=== PATIENT | male | born 1970 | race Caucasian/White ===

== ENCOUNTER 2016-07-04 21:23 | Emergency (ER) | payer OTHER, MEDICARE ==
[~2016-07-04 21:23] MED LIST: HYDR10TA16 PO
[2016-07-04 21:27] VITALS: BP 139/87; PULSE 66; RESP 16; TEMP 97.9; O2SAT 96
[2016-07-04] MEDS ORDERED: TETANUS/DIPHTHERIA TOXOID ADULT 0.5 ML VIAL IM ONE (22:15)
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
[2016-07-04] MEDS ORDERED: ACETAMINOPHEN/HYDROcodone 325 MG/5 MG TAB PO ONE (23:00)
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
== END 2016-07-04 23:59 | disposition home or self-care (01) ==
LOC: NEPB 21:23
DX: S82.832A Other fracture of upper and lower end of left fibula, initial encounter for closed fracture (principal); E78.00 Pure hypercholesterolemia, unspecified; I25.2 Old myocardial infarction; Z23 Encounter for immunization; Z87.39 Personal history of other diseases of the musculoskeletal system and connective tissue; Z87.09 Personal history of other diseases of the respiratory system; Z87.19 Personal history of other diseases of the digestive system; Z86.69 Personal history of other diseases of the nervous system and sense organs; V29.3XXA Motorcycle rider (driver) (passenger) injured in unspecified nontraffic accident, initial encounter
CPT/HCPCS: 29515; 73600; 73630; 90471; 90714; 99283; E0113

== ENCOUNTER 2016-12-04 17:45 | Emergency (ER) | payer MEDICARE, OTHER ==
[~2016-12-04] VITALS: Ht 175.3 cm; Wt 87.4 kg
[2016-12-04 17:51] VITALS: BP 114/80; PULSE 66; RESP 16; TEMP 98.2; O2SAT 97
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
--- NOTE | 2016-12-04 19:00 | RADRPT ---
EXAM DATE/TIME: 12/04/2016 18:43 [facility] COMPARISON: No previous studies available for comparison. INDICATIONS : Lower right rib pain. Patient states he fell off a ladder three weeks ago. MEDICAL HISTORY : None. SURGICAL HISTORY : None. ENCOUNTER: Initial ACUITY: 3 weeks PAIN SCORE: 9/10 LOCATION: Right lower chest FINDINGS: Multiple views of the right ribs were performed. There is a nondisplaced fracture involving the ante rior lateral right seventh rib. No destructive lesions or areas of periosteal thickening are seen. E xpiratory view of the chest is negative for pneumothorax. The mediastinal structures are midline. CONCLUSION: Nondisplaced fracture involving the anterolateral aspect of the right seventh rib. Tremayne Dietrich MD on December 04, 2016 at 18:56 Board Certified Radiologist. This report was verified electronically.
[2016-12-04] MEDS ORDERED: KETOROLAC TROMETHAMINE 60 MG/2 ML (IM) VIAL IM ONE (19:30)
[2016-12-04] MEDS ORDERED: HYDR-3535 PO (19:36)
== END 2016-12-04 19:42 | disposition home or self-care (01) ==
LOC: PHEFT 17:45
DX: S22.31XA Fracture of one rib, right side, initial encounter for closed fracture (principal); W11.XXXA Fall on and from ladder, initial encounter; I25.2 Old myocardial infarction
CPT/HCPCS: 71101; 94150; 99283; J1885